=== PATIENT | female | born 1950 | race Caucasian/White ===

== ENCOUNTER 2019-05-14 10:07 | Day surgery (SDC) | payer OTHER, BC ==
[~2019-05-14 10:07] MED LIST: CEFAZOLIN 2 GM/50 ML (PMX) 50 ML IVPB
[2019-05-14] MEDS ORDERED: LACTATED RINGER'S 1,000 ML IV (11:00)
[2019-05-14] MEDS ORDERED: POLYMYXIN/BACITRACIN 1L IRRIG (12:14)
[2019-05-14] MEDS ORDERED: ROPIVACAINE 0.5 % 30 ML VIAL (12:15)
[2019-05-14] MEDS ORDERED: morphine SULFATE/PF (10 MG/10 ML) INJ (12:15)
[2019-05-14] MEDS ORDERED: LIDOCAINE 1% (MPF) 30 ML INJ (12:15)
[2019-05-14] MEDS ORDERED: PROPOFOL 20 ML (13:10)
[2019-05-14] MEDS ORDERED: LIDOCAINE 2% (SDV) 5 ML INJ (13:10)
[2019-05-14] MEDS ORDERED: GLYCOPYRROLATE 0.4 MG INJ (13:10)
[2019-05-14] MEDS ORDERED: SUCCINYLCHOLINE CHLORIDE 100 MG/5 ML SYG IV (13:10)
[2019-05-14] MEDS ORDERED: NEOSTIGMINE 3 MG/3 ML SYRINGE (13:10)
[2019-05-14] MEDS ORDERED: ROCURONIUM 50 MG INJ (13:10)
[2019-05-14] MEDS ORDERED: MEPERIDINE 100 MG INJ (13:11)
[2019-05-14] MEDS: LIDOCAINE 1%/EPI 30 ML INJ (13:48)
[2019-05-14] MEDS ORDERED: METOCLOPRAMIDE 10 MG INJ (14:28)
[2019-05-14] MEDS ORDERED: ONDANSETRON 4 MG INJ (14:28)
[2019-05-14] MEDS ORDERED: MEPERIDINE 25 MG INJ IV (15:00)
[2019-05-14] MEDS ORDERED: METOCLOPRAMIDE 10 MG INJ IV (15:00)
[2019-05-14] MEDS ORDERED: EPHEDrine 25 MG/5 ML SYG IV (15:00)
[2019-05-14] MEDS ORDERED: hydrALAzine 20 MG INJ IV (15:00)
[2019-05-14] MEDS ORDERED: LABETALOL HCL 20MG INJ IV (15:00)
[2019-05-14] MEDS ORDERED: ONDANSETRON 4 MG INJ IV (15:00)
[2019-05-14] MEDS ORDERED: DIPHENHYDRAMINE 50 MG INJ IV (15:00)
[2019-05-14] MEDS ORDERED: FENTAnyl 50 MCG/ML VIAL IV ×3 (15:00)
[2019-05-14] MEDS ORDERED: MIDAZOLAM 1 MG/ML 2 ML INJ IV (15:00)
[2019-05-14] MEDS ORDERED: BUPIVACAINE LIPOSOME/PF 266 MG/20 ML VIAL INFIL (15:30)
[2019-05-14] MEDS: DEXAMETHASONE 4 MG/ML 1 ML INJ IV (16:03)
[2019-05-14] MEDS: KETOROLAC 30 MG INJ IV (18:21)
== END 2019-05-14 18:55 | disposition home or self-care (01) ==
LOC: SDS 10:07
DX: S52.502A Unspecified fracture of the lower end of left radius, initial encounter for closed fracture (principal); D64.9 Anemia, unspecified; X58.XXXA Exposure to other specified factors, initial encounter; Y93.89 Activity, other specified; Y92.89 Other specified places as the place of occurrence of the external cause; Y99.9 Unspecified external cause status
CPT/HCPCS: 25609; 73090